=== PATIENT | female | born 1975 | race Caucasian/White ===

== ENCOUNTER 2022-05-30 16:13 | Outpatient (CLI) | payer BC ==
--- NOTE | 2022-05-30 17:00 | XRAY Report ---
PROCEDURE: Foot 3 View RT INDICATIONS: ACUTE RT FOOT PAIN TECHNIQUE: 3 views of the foot were acquired. COMPARISON: None. FINDINGS: Bones: No fractures or dislocations. No suspicious bony lesions. Plantar calcaneal enthesophyte. Soft tissues: No suspicious soft tissue calcifications or masses. IMPRESSION: No acute bony abnormality. If pain persists with conservative management, consider repeat radiographs in 10-14 days or cross-sectional imaging. Reviewed by: Efren Mcdermott on 05/30/2022 4:59 PM PDT Approved by: Efren Mcdermott on 05/30/2022 4:59 PM PDT Station ID: [id number]
== END 2022-05-30 16:14 | disposition home or self-care (01) ==
LOC: DI 16:13
PROVIDERS: ATTEND Podiatrist
DX: M79.671 Pain in right foot (principal)

== ENCOUNTER 2023-10-21 13:16 | Outpatient (CLI) | payer BC ==
--- NOTE | 2023-10-22 07:24 | Ultrasound Report ---
PROCEDURE: Pelvic Limited INDICATIONS: GROIN MASS TECHNIQUE: Real-time transabdominal scanning was performed of the right inguinal region, with image documentatio n. COMPARISON: None. FINDINGS: At the level of the right groin, there is a 4.3 x 5.7 x 1.5 cm anechoic, avascular lobulated lesion w ith posterior acoustic enhancement. Adjacent to this lesion, there is a morphologically benign 1.3 x 1.8 x 0.7 cm lymph node with a 0.2 cm thick cortex. IMPRESSION: Right groin groin 5.7 cm cystic lesion, which is a highly nonspecific finding. If this is a new findi ng with palpable tenderness, consider a CT abdomen and pelvis with IV contrast for further evaluation . Reviewed by: Eren Whittington MD on 10/22/2023 7:23 AM PDT Approved by: Eren Whittington MD on 10/22/2023 7:23 AM PDT Station ID: [id number]
== END 2023-10-21 13:17 | disposition home or self-care (01) ==
LOC: DI 13:16
DX: R19.03 Right lower quadrant abdominal swelling, mass and lump (principal)